=== PATIENT | male | born 1965 | race Caucasian/White ===

== ENCOUNTER 2024-03-04 17:11 | Inpatient (IN) | payer OTHER ==
[2024-03-04 17:43] LABS: #Basophils 0.03 10x3/uL (0.0-0.2); #Eosinophils Less than 0.03 10x3/uL (0.0-0.7); %Basophils 0.2 % (0.0-1.0); %Eosinophils 0.1 % (0.0-10.0); %Lymphocytes 2.8 % (21.0-51.0); %Monocytes 8.8 % (0.0-10.0); %Neutrophils 87.5 % (42.0-75.0); Hematocrit 36.7 % (42.0-52.0); Hemoglobin 12.6 g/dL (14.0-18.0); Mean Corpuscular HGB CONC 34.3 g/dL (32.0-36.0); Mean Corpuscular Hemoglobin 28.9 pg (27.0-31.0); Mean Corpuscular Volume 84.2 fL (78.0-98.0); Mean Platelet Volume 10.6 fL (7.4-10.4); Platelet Count 252 10x3/uL (130-400); RBC Distribution Width 11.7 % (11.5-14.5); Red Blood Cell (RBC) Count 4.36 mill/uL (4.70-6.10)
[2024-03-04 17:58] LABS: INR-International Normal Ratio 1.1; Prothrombin Time 14.1 sec (12.0-14.7)
[2024-03-04 18:02] LABS: D-Dimer Test 1.45 mcg/mL (0.27-0.43)
[2024-03-04] MEDS ORDERED: HYDROmorphone 0.5 MG/0.5 ML SYRINGE ONE (18:04)
[2024-03-04] MEDS ORDERED: Boostrix 0.5 ML (Tdap) VIAL (>/=7 yrs of age) ONE (18:04)
[2024-03-04 18:18] LABS: ALT (SGPT) 20 U/L (8-55); AST (SGOT) 23 U/L (5-34); Albumin 2.8 g/dL (3.5-5.0); Alkaline Phosphatase 139 U/L (40-110); Anion Gap 14 mmol/L (10-20); BUN (Urea Nitrogen) 18 mg/dL (8.4-25.7); Bilirubin, Total 0.6 mg/dL (0.2-1.2); CK (CPK) 735 U/L (30-200); Calc. Creatinine Clearance 0 mL/min (70-130); Calcium 9.4 mg/dL (7.8-10.44); Carbon Dioxide 24 mmol/L (22-29); Chloride 90 mmol/L (98-107); Estimated GFR 87; Globulin 3.6 g/dL (2.4-3.5); Glucose 550 mg/dL (70-105); Potassium 4.1 mmol/L (3.5-5.1); Protein, Total 6.4 g/dL (6.0-8.3); Sodium 124 mmol/L (136-145)
[2024-03-04] MEDS ORDERED: Lidocaine 2% PF 5 ML VIAL ONE (19:31)
[2024-03-04] MEDS ORDERED: Morphine 4 MG/ML VIAL SLOW IVP PRN (20:14)
[2024-03-04] MEDS ORDERED: Glucagon 1 MG/ML KIT IM PRN (20:15)
[2024-03-04] MEDS ORDERED: Dextrose 5% in Water 1,000 ML IV PRN (20:15)
[2024-03-04] MEDS ORDERED: Dextrose 50% Abboject 50 ML SYRINGE SLOW IVP PRN (20:15)
[2024-03-04] MEDS ORDERED: Labetalol HCl 100 MG/20 ML VIAL SLOW IVP PRN (20:46)
[2024-03-04] MEDS: Insulin Lispro 100 UNIT/ML 10 ML VIAL SC PRN (22:21)
[2024-03-04] MEDS: Sodium Chloride 0.9% 1,000 ML IV SCH (22:23)
[2024-03-04] MEDS: Vancomycin (BATCH) 2 GM in Premix 1 BAG IVPB SCH (22:23)
[2024-03-04] MEDS: Nicotine 14 MG PATCH TD SCH (22:25)
[2024-03-04] MEDS: Acetaminophen 325 MG TAB PO PRN (22:40)
[2024-03-04] MEDS: Clindamycin/D5W 900 MG in Premix 1 BAG IVPB SCH (22:41)
[2024-03-05 00:43] VITALS: BMI 19.5
[2024-03-05 00:45] LABS: INR-International Normal Ratio 1.1; Prothrombin Time 14.5 sec (12.0-14.7)
[2024-03-05 00:46] LABS: PTT 39.1 sec (22.9-36.1)
[2024-03-05] MEDS: traMADol HCl 50 MG TAB PO PRN (04:16)
[2024-03-05] MEDS: Ondansetron PF 4 MG/2 ML Vial IVP PRN (04:49)
[2024-03-05 05:55] LABS: #Basophils 0.05 10x3/uL (0.0-0.2); #Eosinophils Less than 0.03 10x3/uL (0.0-0.7); %Basophils 0.2 % (0.0-1.0); %Eosinophils 0.1 % (0.0-10.0); %Lymphocytes 2.1 % (21.0-51.0); %Monocytes 8.3 % (0.0-10.0); %Neutrophils 88.8 % (42.0-75.0); Hematocrit 34.3 % (42.0-52.0); Hemoglobin 11.9 g/dL (14.0-18.0); Mean Corpuscular HGB CONC 34.7 g/dL (32.0-36.0); Mean Corpuscular Volume 83.7 fL (78.0-98.0); Mean Platelet Volume 10.9 fL (7.4-10.4); Platelet Count 233 10x3/uL (130-400); RBC Distribution Width 11.9 % (11.5-14.5)
[2024-03-05 05:59] LABS: ALT (SGPT) 35 U/L (8-55); AST (SGOT) 48 U/L (5-34); Albumin 2.3 g/dL (3.5-5.0); Alkaline Phosphatase 206 U/L (40-110); Anion Gap 15 mmol/L (10-20); BUN (Urea Nitrogen) 12 mg/dL (8.4-25.7); Bilirubin, Total 0.6 mg/dL (0.2-1.2); Calc. Creatinine Clearance 120 mL/min (70-130); Carbon Dioxide 22 mmol/L (22-29); Chloride 97 mmol/L (98-107); Estimated GFR 111; Globulin 3.3 g/dL (2.4-3.5); Glucose 191 mg/dL (70-105); Potassium 3.9 mmol/L (3.5-5.1); Protein, Total 5.6 g/dL (6.0-8.3); Sodium 130 mmol/L (136-145)
[2024-03-05 06:00] LABS: Hemoglobin A1c 12.7 % (4.0-6.0)
[2024-03-05] MEDS: Cefepime 2 GM in Sodium Chloride 0.9% 100 ML IVPB SCH (06:22)
[2024-03-05] MEDS ORDERED: Ondansetron PF 4 MG/2 ML Vial ONE (09:00)
[2024-03-05] MEDS ORDERED: Lidocaine 1% PF 5 ML VIAL ONE (09:00)
[2024-03-05] MEDS ORDERED: PROPOFOL 20 ML ONE ×2 (09:00→10:29)
[2024-03-05] MEDS ORDERED: fentaNYL 50 mcg/mL 1 mL Vial ONE (09:00)
[2024-03-05] MEDS ORDERED: Midazolam HCl 2 mg/2 ml Vial ONE (09:00)
[2024-03-05] MEDS: Lisinopril 20 MG TAB PO SCH (09:56)
[2024-03-05] MEDS: Vancomycin HCl 750 MG in Sodium Chloride 0.9% 250 ML 250 ML IVPB SCH (09:56)
[2024-03-05] MEDS ORDERED: Iopamidol-370 76% 500 ML MDV (1 ML CHARGE) ONE (10:18)
[2024-03-05] MEDS ORDERED: fentaNYL PF 100 MCG/2 ML SYRINGE ONE ×2 (11:20→12:29)
[2024-03-05] MEDS ORDERED: PHENYLEPHRINE-NS 100 MCG/ML 10 ML SYRINGE ONE ×3 (11:31→13:11)
[2024-03-05] MEDS ORDERED: Heparin 5,000 UNITS/ML VIAL ONE (11:36)
[2024-03-05] MEDS ORDERED: Albumin 5% 500 ML ONE (11:37)
[2024-03-05] MEDS ORDERED: Ketamine In 0.9 % NaCl 50 MG/5 ML SYRINGE ONE (12:23)
[2024-03-05] MEDS ORDERED: Dexamethasone 20 MG/5 ML VIAL ONE (13:25)
[2024-03-05] MEDS ORDERED: Heparin 25,000 units/D5W 500 ML IVPB SCH (14:30)
[2024-03-05] MEDS ORDERED: Heparin 10,000 UNITS/ 10 ML VIAL SLOW IVP SCH (14:30)
[2024-03-05] MEDS: Vancomycin 1 GM in Premix 1 BAG IVPB SCH (15:32)
[2024-03-05 15:41] LABS: Hematocrit 32.7 % (42.0-52.0); Hemoglobin 10.6 g/dL (14.0-18.0); Platelet Count 206 10x3/uL (130-400)
[2024-03-05 17:14] LABS: Hemoglobin 9.2 g/dL (14.0-18.0); Mean Corpuscular HGB CONC 32.9 g/dL (32.0-36.0); Mean Corpuscular Hemoglobin 29.6 pg (27.0-31.0); Platelet Count 184 10x3/uL (130-400); RBC Distribution Width 12.2 % (11.5-14.5); Red Blood Cell (RBC) Count 3.11 mill/uL (4.70-6.10)
[2024-03-05 17:43] LABS: Band 19 % (5-11); Burr Cells SLIGHT = 2-5 cells HPF (0-1); Monocytes 3 % (0-10); Myelocyte 2 % (0-0); Neutrophil 76 % (42-75); Platelet Adequacy Comment Platelets Normal; Polychromasia SLIGHT = 2-3 cells HPF (0-2)
[2024-03-05] MEDS: Morphine 2 MG/ML VIAL SLOW IVP PRN (17:44)
[2024-03-05 18:58] LABS: Lactic Acid 0.94 mmol/L (0.5-2.2)
[2024-03-05] MEDS: FLU (Fluarix Triv) TS24-25(6MOS UP)/PF 45 MCG/0.5 ML Syringe IM ONE (22:03)
[2024-03-06 03:52] LABS: Amphetamine Detected (NotDetected); Barbiturates Screen Not Detected (NotDetected); Benzodiazepine Screen Not Detected (NotDetected); Cocaine Metabolite Screen Not Detected (NotDetected); Methadone Not Detected (NotDetected); Methamphetamine Detected (NotDetected); Opiate Screen Detected (NotDetected); Oxycodone Screen Not Detected (NotDetected); Phencyclidine (PCP) Not Detected (NotDetected); THC/Cannabinoid Screen Detected (NotDetected); Tricyclic Screen Not Detected (NotDetected)
[2024-03-06 05:15] LABS: #Basophils 0.03 10x3/uL (0.0-0.2); %Basophils 0.2 % (0.0-1.0); %Eosinophils 0.2 % (0.0-10.0); %Lymphocytes 3.8 % (21.0-51.0); %Monocytes 8.3 % (0.0-10.0); %Neutrophils 86.6 % (42.0-75.0); Hematocrit 28.5 % (42.0-52.0); Hemoglobin 9.6 g/dL (14.0-18.0); Mean Corpuscular HGB CONC 33.7 g/dL (32.0-36.0); Mean Corpuscular Hemoglobin 28.7 pg (27.0-31.0); Mean Corpuscular Volume 85.3 fL (78.0-98.0); Mean Platelet Volume 10.8 fL (7.4-10.4); Platelet Count 233 10x3/uL (130-400); RBC Distribution Width 11.9 % (11.5-14.5); Red Blood Cell (RBC) Count 3.34 mill/uL (4.70-6.10)
[2024-03-06 05:36] LABS: Vancomycin, Random 11.4 ug/mL (See Comment)
[2024-03-06 05:39] LABS: ALT (SGPT) 43 U/L (8-55); AST (SGOT) 40 U/L (5-34); Albumin 1.9 g/dL (3.5-5.0); Alkaline Phosphatase 188 U/L (40-110); Anion Gap 10 mmol/L (10-20); BUN (Urea Nitrogen) 13 mg/dL (8.4-25.7); Bilirubin, Total 0.3 mg/dL (0.2-1.2); Calc. Creatinine Clearance 105 mL/min (70-130); Calcium 8.4 mg/dL (7.8-10.44); Carbon Dioxide 26 mmol/L (22-29); Chloride 101 mmol/L (98-107); Estimated GFR 107; Glucose 302 mg/dL (70-105); Potassium 4.2 mmol/L (3.5-5.1); Protein, Total 4.9 g/dL (6.0-8.3); Sodium 133 mmol/L (136-145)
[2024-03-06 11:56] VITALS: BMI 19.5
[2024-03-06] MEDS: Cefepime 2 GM in Sodium Chloride 0.9% 100 ML IVPB SCH (12:34)
[2024-03-06] MEDS: Clindamycin/D5W 900 MG in Premix 1 BAG IVPB SCH (12:38)
[2024-03-06] MEDS ORDERED: fentaNYL 50 mcg/mL 1 mL Vial ONE (16:58)
[2024-03-06] MEDS ORDERED: Rocuronium Bromide 10 MG/ML (10ML VIAL) ONE (17:07)
[2024-03-06] MEDS ORDERED: PROPOFOL 20 ML ONE (17:07)
[2024-03-06] MEDS ORDERED: fentaNYL PF 100 MCG/2 ML SYRINGE ONE (17:13)
[2024-03-06] MEDS ORDERED: Dexmedetomidine 200 MCG/2 ML VIAL ONE (17:46)
[2024-03-06] MEDS ORDERED: diphenhydrAMINE 50 MG/ML VIAL ONE (17:47)
[2024-03-06] MEDS ORDERED: Ondansetron PF 4 MG/2 ML Vial ONE (17:47)
[2024-03-06] MEDS ORDERED: Heparin 10,000 UNITS/ 10 ML VIAL ONE (18:33)
[2024-03-06] MEDS ORDERED: HYDROmorphone 2 MG/ML VIAL ONE (19:19)
[2024-03-06] MEDS ORDERED: SUGAMMADEX SODIUM 200 MG/2 ML VIAL ONE (19:19)
[2024-03-06] MEDS ORDERED: Ketorolac Tromethamine 30 MG (1 mL) VIAL ONE (19:24)
[2024-03-06] MEDS ORDERED: Promethazine HCl 25 MG/ML VIAL IM PRN ×2 (19:54→19:55)
[2024-03-06] MEDS ORDERED: Ondansetron HCl/PF 4 MG/2 ML Vial IVP PRN (19:54)
[2024-03-06] MEDS ORDERED: HYDROmorphone 2 MG/ML VIAL SLOW IVP PRN (19:54)
[2024-03-06] MEDS ORDERED: diphenhydrAMINE 50 MG/ML VIAL IM PRN (19:55)
[2024-03-06] MEDS ORDERED: Ondansetron PF 4 MG/2 ML Vial IVP PRN (19:55)
[2024-03-06] MEDS ORDERED: diphenhydrAMINE 25 MG CAP PO PRN (19:55)
[2024-03-06] MEDS ORDERED: Naloxone HCl 0.4 mg/ml Vial IV PRN (19:55)
[2024-03-06] MEDS ORDERED: diphenhydrAMINE 50 MG/ML VIAL IVP PRN (19:55)
[2024-03-06] MEDS ORDERED: Communication Order-Pharmacy FS SCH (20:00)
[2024-03-06] MEDS ORDERED: Heparin 1,000 UNITS/ML VIAL CATH SCH (20:30)
[2024-03-06] MEDS ORDERED: Cefepime 2 GM VIAL ONE (20:36)
[2024-03-06] MEDS ORDERED: Sodium Chloride 0.9% 100 ML ONE (20:37)
[2024-03-06] MEDS: Heparin 25,000 units/D5W 500 ML IV SCH (22:30)
[2024-03-07] MEDS ORDERED: Benzocaine/Menthol 1 LOZ LOZ PO PRN (01:19)
[2024-03-07] MEDS: Clindamycin/D5W 900 MG in Premix 1 BAG IVPB SCH ×2 (01:22→09:09)
[2024-03-07] MEDS: Insulin Lispro 100 UNIT/ML 10 ML VIAL SC PRN (06:47)
[2024-03-07 14:52] LABS: Hematocrit 24.8 % (42.0-52.0); Hemoglobin 8.1 g/dL (14.0-18.0); Platelet Count 226 10x3/uL (130-400)
[2024-03-08 06:23] LABS: #Basophils 0.03 10x3/uL (0.0-0.2); %Basophils 0.3 % (0.0-1.0); %Eosinophils 1.3 % (0.0-10.0); %Lymphocytes 12.2 % (21.0-51.0); %Monocytes 10.1 % (0.0-10.0); %Neutrophils 74.8 % (42.0-75.0); Hematocrit 23.8 % (42.0-52.0); Hemoglobin 7.9 g/dL (14.0-18.0); Mean Corpuscular HGB CONC 33.2 g/dL (32.0-36.0); Mean Corpuscular Hemoglobin 28.9 pg (27.0-31.0); Mean Corpuscular Volume 87.2 fL (78.0-98.0); Mean Platelet Volume 10.7 fL (7.4-10.4); Platelet Count 257 10x3/uL (130-400); RBC Distribution Width 12.3 % (11.5-14.5); Red Blood Cell (RBC) Count 2.73 mill/uL (4.70-6.10)
[2024-03-08 06:41] LABS: ALT (SGPT) 48 U/L (8-55); AST (SGOT) 30 U/L (5-34); Albumin 1.7 g/dL (3.5-5.0); Alkaline Phosphatase 293 U/L (40-110); Anion Gap 12 mmol/L (10-20); BUN (Urea Nitrogen) 9 mg/dL (8.4-25.7); Calc. Creatinine Clearance 124 mL/min (70-130); Carbon Dioxide 23 mmol/L (22-29); Chloride 98 mmol/L (98-107); Estimated GFR 112; Globulin 3.2 g/dL (2.4-3.5); Glucose 234 mg/dL (70-105); Potassium 4.1 mmol/L (3.5-5.1); Protein, Total 4.9 g/dL (6.0-8.3); Sodium 129 mmol/L (136-145)
[2024-03-08 06:57] LABS: Bilirubin, Total 0.2 mg/dL (0.2-1.2); Calcium 8.2 mg/dL (7.8-10.44)
[2024-03-08] MEDS ORDERED: PROPOFOL 0 ML ONE (15:31)
[2024-03-08] MEDS ORDERED: fentaNYL 50 mcg/mL 1 mL Vial ONE (15:32)
[2024-03-08] MEDS ORDERED: Rocuronium Bromide 10 MG/ML (10ML VIAL) ONE (15:32)
[2024-03-08] MEDS ORDERED: Lidocaine 1% PF 5 ML VIAL ONE (15:32)
[2024-03-08] MEDS ORDERED: Dexamethasone 20 MG/5 ML VIAL ONE (15:32)
[2024-03-08] MEDS ORDERED: Ondansetron PF 4 MG/2 ML Vial ONE (15:32)
[2024-03-08] MEDS: HYDROmorphone/PF 10 MG in Sodium Chloride 0.9% 99 ML IV PRN (19:25)
[2024-03-09 06:47] LABS: Vancomycin, Random 12.4 ug/mL (See Comment)
[2024-03-09] MEDS ORDERED: Melatonin 3 MG TAB PO PRN (09:04)
[2024-03-09] MEDS: Senokot S 8.6-50 MG TAB PO SCH ×2 (09:31→20:24)
[2024-03-09 12:37] LABS: Hemoglobin 7.5 g/dL (14.0-18.0)
[2024-03-09] MEDS ORDERED: Ondansetron PF 4 MG/2 ML Vial ONE ×2 (13:59→16:10)
[2024-03-09] MEDS ORDERED: Lidocaine 1% PF 5 ML VIAL ONE (13:59)
[2024-03-09] MEDS ORDERED: PROPOFOL 20 ML ONE (13:59)
[2024-03-09] MEDS ORDERED: fentaNYL PF 100 MCG/2 ML SYRINGE ONE ×2 (13:59→15:34)
[2024-03-09] MEDS ORDERED: Dexamethasone 20 MG/5 ML VIAL ONE (13:59)
[2024-03-09] MEDS ORDERED: Midazolam HCl 2 mg/2 ml Vial ONE (14:01)
[2024-03-09] MEDS ORDERED: Promethazine HCl 25 MG/ML VIAL IM PRN (16:29)
[2024-03-09] MEDS ORDERED: Morphine Sulfate 2 MG/ML SYRINGE SLOW IVP PRN (16:29)
[2024-03-09] MEDS ORDERED: Ondansetron HCl/PF 4 MG/2 ML Vial IVP PRN (16:29)
[2024-03-09] MEDS ORDERED: PACU-Morphine 4MG/ML VIAL SLOW IVP PRN (16:29)
[2024-03-09] MEDS ORDERED: HYDROmorphone 2 MG/ML VIAL SLOW IVP PRN (16:29)
[2024-03-09 23:42] LABS: Hematocrit 28.3 % (42.0-52.0); Hemoglobin 9.3 g/dL (14.0-18.0); Platelet Count 313 10x3/uL (130-400)
[2024-03-10] MEDS: Bisacodyl 5 MG TAB PO SCH (11:21)
[2024-03-10] MEDS: Penicillin G Potassium 4,000,000 UNITS in Syringe 0 ML IVPB SCH (14:59)
[2024-03-10] MEDS: Penicillin G Potassium 4 MILL.UNITS in Sodium Chloride 0.9% 50 ML IVPB SCH (20:13)
[2024-03-11 08:17] LABS: #Basophils 0.05 10x3/uL (0.0-0.2); %Basophils 0.6 % (0.0-1.0); %Eosinophils 1.6 % (0.0-10.0); %Lymphocytes 13.3 % (21.0-51.0); %Neutrophils 70.9 % (42.0-75.0); Hematocrit 27.6 % (42.0-52.0); Hemoglobin 8.9 g/dL (14.0-18.0); Mean Corpuscular HGB CONC 32.2 g/dL (32.0-36.0); Mean Corpuscular Hemoglobin 28.3 pg (27.0-31.0); Mean Corpuscular Volume 87.9 fL (78.0-98.0); Mean Platelet Volume 9.2 fL (7.4-10.4); Platelet Count 324 10x3/uL (130-400); RBC Distribution Width 13.2 % (11.5-14.5); Red Blood Cell (RBC) Count 3.14 mill/uL (4.70-6.10)
[2024-03-11 08:39] LABS: Anion Gap 11 mmol/L (10-20); BUN (Urea Nitrogen) 13 mg/dL (8.4-25.7); Calc. Creatinine Clearance 107 mL/min (70-130); Calcium 8.5 mg/dL (7.8-10.44); Carbon Dioxide 27 mmol/L (22-29); Chloride 98 mmol/L (98-107); Estimated GFR 107; Glucose 262 mg/dL (70-105); Potassium 4.1 mmol/L (3.5-5.1); Sodium 132 mmol/L (136-145)
[2024-03-11 08:40] LABS: CRP,High Sensitivity (Inhouse) 2.27 mg/dL (< or = 0.5)
[2024-03-11 17:38] LABS: Hemoglobin 8.8 g/dL (14.0-18.0); Platelet Count 330 10x3/uL (130-400)
[2024-03-12] MEDS ORDERED: Bacitracin Zinc Ointment 30 gm TUBE ONE (10:20)
[2024-03-12] MEDS ORDERED: Bupivacaine PF 0.5% 30 ML VIAL ONE (10:20)
[2024-03-12] MEDS ORDERED: PROPOFOL 20 ML ONE (10:31)
[2024-03-12] MEDS ORDERED: fentaNYL 50 mcg/mL 1 mL Vial ONE ×2 (10:31→14:34)
[2024-03-12] MEDS ORDERED: Lidocaine 1% PF 5 ML VIAL ONE (10:31)
[2024-03-12] MEDS ORDERED: Rocuronium Bromide 10 MG/ML (10ML VIAL) ONE (11:41)
[2024-03-12] MEDS ORDERED: ePHEDrine Sulfate 50 MG/10 ML VIAL ONE (12:13)
[2024-03-12] MEDS ORDERED: Mineral Oil Sterile 10 ML VIAL ONE (12:56)
[2024-03-12] MEDS ORDERED: PHENYLEPHRINE-NS 100 MCG/ML 10 ML SYRINGE ONE (13:18)
[2024-03-12] MEDS ORDERED: Phenylephrine 40 MG/NS 250 ML 250 ML ONE ×2 (13:18)
[2024-03-12] MEDS ORDERED: Heparin 10,000 UNITS/ 10 ML VIAL ONE ×2 (13:19→13:45)
[2024-03-12] MEDS ORDERED: SUGAMMADEX SODIUM 200 MG/2 ML VIAL ONE (13:45)
[2024-03-12] MEDS ORDERED: Ondansetron PF 4 MG/2 ML Vial ONE (13:48)
[2024-03-12] MEDS ORDERED: Promethazine HCl 25 MG/ML VIAL IM PRN (14:16)
[2024-03-12] MEDS ORDERED: Ondansetron HCl/PF 4 MG/2 ML Vial IVP PRN (14:16)
[2024-03-12] MEDS: Heparin 25,000 units/D5W 500 ML IV SCH (17:48)
[2024-03-12] MEDS: fentaNYL 50 mcg/mL 1 mL Vial SLOW IVP PRN (19:57)
[2024-03-12] MEDS: HYDROcodone/Acetaminophen 5/325 mg Tablet PO PRN (19:57)
[2024-03-13] MEDS: HYDROcodone/Acetaminophen 5/325 mg Tablet PO PRN (05:24)
[2024-03-13] MEDS: Insulin Glargine 30 UNITS/0.3 ML VIAL SC SCH (09:15)
[2024-03-13 15:38] LABS: Hematocrit 26.4 % (42.0-52.0); Hemoglobin 8.5 g/dL (14.0-18.0); Platelet Count 424 10x3/uL (130-400)
[2024-03-14 05:57] LABS: #Basophils 0.05 10x3/uL (0.0-0.2); %Basophils 0.7 % (0.0-1.0); %Eosinophils 2.2 % (0.0-10.0); %Lymphocytes 16.3 % (21.0-51.0); %Monocytes 9.5 % (0.0-10.0); %Neutrophils 68.7 % (42.0-75.0); Hematocrit 26.8 % (42.0-52.0); Hemoglobin 8.5 g/dL (14.0-18.0); Mean Corpuscular HGB CONC 31.7 g/dL (32.0-36.0); Mean Corpuscular Hemoglobin 28.3 pg (27.0-31.0); Mean Corpuscular Volume 89.3 fL (78.0-98.0); Mean Platelet Volume 9.8 fL (7.4-10.4); Platelet Count 426 10x3/uL (130-400); RBC Distribution Width 13.2 % (11.5-14.5)
[2024-03-14 06:13] LABS: ALT (SGPT) 26 U/L (8-55); AST (SGOT) 14 U/L (5-34); Albumin 2.1 g/dL (3.5-5.0); Alkaline Phosphatase 213 U/L (40-110); Anion Gap 12 mmol/L (10-20); BUN (Urea Nitrogen) 14 mg/dL (8.4-25.7); Bilirubin, Total 0.2 mg/dL (0.2-1.2); Calc. Creatinine Clearance 99 mL/min (70-130); Carbon Dioxide 25 mmol/L (22-29); Chloride 98 mmol/L (98-107); Estimated GFR 105; Globulin 3.4 g/dL (2.4-3.5); Glucose 439 mg/dL (70-105); Protein, Total 5.5 g/dL (6.0-8.3); Sodium 131 mmol/L (136-145)
[2024-03-14] MEDS: Insulin Glargine 30 UNITS/0.3 ML VIAL SC SCH (22:30)
[2024-03-15 05:57] LABS: #Basophils 0.07 10x3/uL (0.0-0.2); %Basophils 0.7 % (0.0-1.0); %Eosinophils 2.1 % (0.0-10.0); %Lymphocytes 16.6 % (21.0-51.0); %Monocytes 7.7 % (0.0-10.0); %Neutrophils 70.5 % (42.0-75.0); Hematocrit 30.2 % (42.0-52.0); Hemoglobin 9.5 g/dL (14.0-18.0); Mean Corpuscular HGB CONC 31.5 g/dL (32.0-36.0); Mean Corpuscular Hemoglobin 27.5 pg (27.0-31.0); Mean Corpuscular Volume 87.5 fL (78.0-98.0); Mean Platelet Volume 9.8 fL (7.4-10.4); Platelet Count 506 10x3/uL (130-400); RBC Distribution Width 13.3 % (11.5-14.5); Red Blood Cell (RBC) Count 3.45 mill/uL (4.70-6.10)
[2024-03-15 06:15] LABS: Anion Gap 12 mmol/L (10-20); BUN (Urea Nitrogen) 16 mg/dL (8.4-25.7); Calc. Creatinine Clearance 97 mL/min (70-130); Calcium 8.9 mg/dL (7.8-10.44); Carbon Dioxide 28 mmol/L (22-29); Chloride 98 mmol/L (98-107); Estimated GFR 104; Glucose 297 mg/dL (70-105); Potassium 4.4 mmol/L (3.5-5.1); Sodium 134 mmol/L (136-145)
[2024-03-15] MEDS: Insulin Glargine 30 UNITS/0.3 ML VIAL SC SCH (08:56)
[2024-03-15 14:27] LABS: Hematocrit 27.9 % (42.0-52.0); Hemoglobin 9.2 g/dL (14.0-18.0); Platelet Count 447 10x3/uL (130-400)
[2024-03-16 05:04] LABS: #Basophils 0.07 10x3/uL (0.0-0.2); %Basophils 0.8 % (0.0-1.0); %Eosinophils 2.2 % (0.0-10.0); %Lymphocytes 16.4 % (21.0-51.0); %Neutrophils 69.9 % (42.0-75.0); Mean Corpuscular HGB CONC 30.8 g/dL (32.0-36.0); Mean Corpuscular Hemoglobin 27.9 pg (27.0-31.0); Mean Corpuscular Volume 90.6 fL (78.0-98.0); Mean Platelet Volume 9.8 fL (7.4-10.4); Platelet Count 421 10x3/uL (130-400); RBC Distribution Width 13.3 % (11.5-14.5); Red Blood Cell (RBC) Count 2.87 mill/uL (4.70-6.10)
[2024-03-16 05:49] LABS: Anion Gap 14 mmol/L (10-20); BUN (Urea Nitrogen) 12 mg/dL (8.4-25.7); Calc. Creatinine Clearance 102 mL/min (70-130); Calcium 8.2 mg/dL (7.8-10.44); Carbon Dioxide 22 mmol/L (22-29); Chloride 101 mmol/L (98-107); Estimated GFR 106; Glucose 359 mg/dL (70-105); Potassium 3.9 mmol/L (3.5-5.1); Sodium 133 mmol/L (136-145)
[2024-03-16] MEDS: Insulin Glargine 30 UNITS/0.3 ML VIAL SC SCH ×2 (09:03→09:08)
[2024-03-17 05:48] LABS: #Basophils 0.06 10x3/uL (0.0-0.2); %Basophils 0.7 % (0.0-1.0); %Eosinophils 2.1 % (0.0-10.0); %Lymphocytes 15.4 % (21.0-51.0); %Monocytes 7.9 % (0.0-10.0); Hemoglobin 8.4 g/dL (14.0-18.0); Mean Corpuscular HGB CONC 31.1 g/dL (32.0-36.0); Mean Corpuscular Hemoglobin 27.8 pg (27.0-31.0); Mean Corpuscular Volume 89.4 fL (78.0-98.0); Mean Platelet Volume 9.9 fL (7.4-10.4); Platelet Count 432 10x3/uL (130-400); RBC Distribution Width 13.8 % (11.5-14.5); Red Blood Cell (RBC) Count 3.02 mill/uL (4.70-6.10)
[2024-03-17 06:24] LABS: ALT (SGPT) 25 U/L (8-55); AST (SGOT) 21 U/L (5-34); Albumin 2.3 g/dL (3.5-5.0); Alkaline Phosphatase 158 U/L (40-110); Anion Gap 12 mmol/L (10-20); BUN (Urea Nitrogen) 13 mg/dL (8.4-25.7); Bilirubin, Total 0.2 mg/dL (0.2-1.2); Calc. Creatinine Clearance 107 mL/min (70-130); Calcium 8.5 mg/dL (7.8-10.44); Carbon Dioxide 25 mmol/L (22-29); Chloride 102 mmol/L (98-107); Estimated GFR 107; Globulin 3.1 g/dL (2.4-3.5); Glucose 282 mg/dL (70-105); Magnesium 1.7 mg/dL (1.6-2.6); Potassium 4.1 mmol/L (3.5-5.1); Protein, Total 5.4 g/dL (6.0-8.3); Sodium 135 mmol/L (136-145)
[2024-03-17 11:51] VITALS: BP 156/81; TEMP 97.5
== END 2024-03-17 14:35 | disposition home or self-care (01) | DRG 511 ==
LOC: ERS 17:11 → SURG A 19:28 → OBSVTOIN 03-05 06:20
PROVIDERS: ADMIT Internal Medicine; ATTEND Internal Medicine
PROC: 30233J1 Transfusion of Nonautologous Serum Albumin into Peripheral Vein, Percutaneous Approach (ICD-10-PCS; 2024-03-05)
PROC: 0J8 Subcutaneous Tissue and Fascia, Division (ICD-10-PCS; 2024-03-05)
PROC: 0KBC0ZZ Excision of Right Hand Muscle, Open Approach (ICD-10-PCS; 2024-03-06)
PROC: 30233N1 Transfusion of Nonautologous Red Blood Cells into Peripheral Vein, Percutaneous Approach (ICD-10-PCS; principal; 2024-03-09)
PROC: 0PBH0ZZ Excision of Right Radius, Open Approach (ICD-10-PCS; 2024-03-09)
PROC: 3E033XZ Introduction of Vasopressor into Peripheral Vein, Percutaneous Approach (ICD-10-PCS; 2024-03-12)
PROC: 0HRFXK3 Replacement of Right Hand Skin with Nonautologous Tissue Substitute, Full Thickness, External Approach (ICD-10-PCS; 2024-03-12)
PROC: 0KBC0ZZ Excision of Right Hand Muscle, Open Approach (ICD-10-PCS; 2024-03-12)
DX: M60.001 Infective myositis, unspecified left arm (principal); E87.1 Hypo-osmolality and hyponatremia; I74.2 Embolism and thrombosis of arteries of the upper extremities; M72.6 Necrotizing fasciitis; M62.82 Rhabdomyolysis; I10 Essential (primary) hypertension; F31.9 Bipolar disorder, unspecified; F17.210 Nicotine dependence, cigarettes, uncomplicated; E11.65 Type 2 diabetes mellitus with hyperglycemia
CPT/HCPCS: 36415; 36416; 36430; 80048; 80053; 80202; 80306; 82550; 82565; 83036; 83605; 83735; 85014; 85018; 85025; 85049; 85379; 85384; 85610; 85730; 86141; 86850; 86900; 86901; 87040; 87070; 87077; 87205; 88305; 90471; 90715; 93005; 96361; 96365; 96366; 96367; 96375; 97139; A6258; A6550; C1713; G0378; J0665; J0692; J1100; J1170; J1200; J1644; J1815; J1885; J2250; J2272; J2405; J2540; J2704; J3010; J3370; J3370-JW; J3490; J7030; P9016; P9045; Q9967

== ENCOUNTER 2024-03-21 07:09 | Inpatient (IN) | payer OTHER ==
[2024-03-21 07:36] LABS: #Basophils 0.07 10x3/uL (0.0-0.2); %Basophils 1.2 % (0.0-1.0); %Eosinophils 1.8 % (0.0-10.0); %Lymphocytes 19.3 % (21.0-51.0); %Monocytes 10.8 % (0.0-10.0); %Neutrophils 66.5 % (42.0-75.0); Hematocrit 29.3 % (42.0-52.0); Hemoglobin 9.4 g/dL (14.0-18.0); Mean Corpuscular HGB CONC 32.1 g/dL (32.0-36.0); Mean Corpuscular Hemoglobin 27.7 pg (27.0-31.0); Mean Corpuscular Volume 86.4 fL (78.0-98.0); Mean Platelet Volume 9.5 fL (7.4-10.4); Platelet Count 342 10x3/uL (130-400); RBC Distribution Width 13.8 % (11.5-14.5); Red Blood Cell (RBC) Count 3.39 mill/uL (4.70-6.10)
[2024-03-21] MEDS ORDERED: Morphine 4 MG/ML VIAL ONE ×2 (07:55→09:11)
[2024-03-21 07:57] LABS: Glucose 497 mg/dL (70-105)
[2024-03-21 07:58] LABS: ALT (SGPT) 27 U/L (8-55); AST (SGOT) 15 U/L (5-34); Albumin 2.7 g/dL (3.5-5.0); Alkaline Phosphatase 181 U/L (40-110); Anion Gap 13 mmol/L (10-20); BUN (Urea Nitrogen) 18 mg/dL (8.4-25.7); Bilirubin, Total 0.2 mg/dL (0.2-1.2); Calc. Creatinine Clearance 0 mL/min (70-130); Calcium 8.7 mg/dL (7.8-10.44); Carbon Dioxide 24 mmol/L (22-29); Chloride 101 mmol/L (98-107); Estimated GFR 104; Globulin 3.1 g/dL (2.4-3.5); Potassium 4.4 mmol/L (3.5-5.1); Protein, Total 5.8 g/dL (6.0-8.3); Sodium 134 mmol/L (136-145)
[2024-03-21 08:33] LABS: PTT 30.6 sec (22.9-36.1); Prothrombin Time 12.6 sec (12.0-14.7)
[2024-03-21] MEDS ORDERED: Iopamidol-370 76% 500 ML MDV (1 ML CHARGE) ONE (10:20)
[2024-03-21 11:39] LABS: Amphetamine Detected (NotDetected); Bacteria/HPF None Seen HPF (None Seen); Barbiturates Screen Not Detected (NotDetected); Benzodiazepine Screen Not Detected (NotDetected); Bilirubin Negative (Negative); Blood, Urine Negative (Negative); CAUTI Indications for Culture Dysuria,urgency,freq; Clarity Clear (Clear); Cocaine Metabolite Screen Not Detected (NotDetected); Glucose, Urine (Dipstick) Greater than 1000 mg/dL (Negative); Ketone, Urine Negative (Negative); Leukocyte Negative Leu/uL (Negative); Methadone Not Detected (NotDetected); Methamphetamine Detected (NotDetected); Nitrite Negative (Negative); Opiate Screen Detected (NotDetected); Oxycodone Screen Not Detected (NotDetected); Phencyclidine (PCP) Not Detected (NotDetected); Protein, Urine (Dipstick) Negative (Neg-Trace); RBC/HPF 0-3 HPF (0-3); Specific Gravity, Urine 1.025 (1.002-1.036); Squamous Epithelial 0-3 HPF (0-3); THC/Cannabinoid Screen Detected (NotDetected); Tricyclic Screen Not Detected (NotDetected); Urobilinogen Normal mg/dL (Less than 2); WBC/HPF 0-3 HPF (0-3); pH, Urine 6.5 (5.0-9.0)
[2024-03-21 11:44] LABS: Urine Culture Reflex No No
[2024-03-21] MEDS ORDERED: Heparin 5,000 UNITS/ML VIAL ONE (11:50)
[2024-03-21] MEDS ORDERED: Heparin 25,000 units/D5W 0 ML ONE (11:50)
[2024-03-21] MEDS ORDERED: Heparin 25,000 units/D5W 500 ML ONE (11:53)
[2024-03-21] MEDS ORDERED: HYDROmorphone 0.5 MG/0.5 ML SYRINGE ONE (12:04)
[2024-03-21] MEDS ORDERED: Ondansetron ODT 4 MG TAB PO PRN (12:16)
[2024-03-21] MEDS ORDERED: Morphine 4 MG/ML VIAL SLOW IVP PRN (12:16)
[2024-03-21] MEDS ORDERED: Ondansetron PF 4 MG/2 ML Vial IVP PRN ×2 (12:16→12:31)
[2024-03-21] MEDS ORDERED: Glucagon 1 MG/ML KIT IM PRN (12:31)
[2024-03-21] MEDS ORDERED: Dextrose 50% Abboject 50 ML SYRINGE SLOW IVP PRN (12:31)
[2024-03-21] MEDS ORDERED: Dextrose 5% in Water 1,000 ML IV PRN (12:31)
[2024-03-21 13:05] LABS: Hematocrit 27.4 % (42.0-52.0); Hemoglobin 8.6 g/dL (14.0-18.0); Platelet Count 301 10x3/uL (130-400)
[2024-03-21 13:46] LABS: PTT 192.9 sec (22.9-36.1)
[2024-03-21] MEDS: Penicillin V Potassium 250 MG TAB PO SCH (14:25)
[2024-03-21] MEDS: Clindamycin/D5W 900 MG in Premix 1 BAG IVPB SCH (15:36)
[2024-03-21] MEDS: Famotidine/PF 20 mg/2ml Vial SLOW IVP SCH (21:48)
[2024-03-21] MEDS: Heparin 10,000 UNITS/ 10 ML VIAL SLOW IVP SCH (23:51)
[2024-03-22] MEDS: Insulin Regular, Human 100 UNIT/ML 10 ML VIAL SC PRN (00:02)
[2024-03-22] MEDS: Morphine 4 MG/ML VIAL SLOW IVP PRN (00:05)
[2024-03-22] MEDS: [UNRECOGNIZED DRUG - OTHER] IVPB SCH (01:37)
[2024-03-22] MEDS: PENICILLIN POTASSIUM IVPB SCH (01:37)
[2024-03-22] MEDS: ADMIXTURE FEE IVPB SCH (01:37)
[2024-03-22] MEDS: Heparin 25,000 units/D5W 500 ML IVPB SCH (05:09)
[2024-03-22] MEDS: Clindamycin 150 MG CAP PO SCH (05:13)
[2024-03-22 05:32] LABS: #Basophils 0.05 10x3/uL (0.0-0.2); %Basophils 1.1 % (0.0-1.0); %Eosinophils 2.1 % (0.0-10.0); %Lymphocytes 19.8 % (21.0-51.0); %Monocytes 9.3 % (0.0-10.0); Hematocrit 26.7 % (42.0-52.0); Hemoglobin 8.5 g/dL (14.0-18.0); Mean Corpuscular HGB CONC 31.8 g/dL (32.0-36.0); Mean Corpuscular Hemoglobin 28.1 pg (27.0-31.0); Mean Corpuscular Volume 88.1 fL (78.0-98.0); Mean Platelet Volume 9.3 fL (7.4-10.4); Platelet Count 244 10x3/uL (130-400); RBC Distribution Width 13.9 % (11.5-14.5); Red Blood Cell (RBC) Count 3.03 mill/uL (4.70-6.10)
[2024-03-22 05:46] VITALS: BMI 21.5
[2024-03-22] MEDS ORDERED: Clindamycin 150 MG CAP PO SCH (06:00)
[2024-03-22 07:05] LABS: Anion Gap 15 mmol/L (10-20); BUN (Urea Nitrogen) 13 mg/dL (8.4-25.7); Calc. Creatinine Clearance 119 mL/min (70-130); Calcium 8.5 mg/dL (7.8-10.44); Carbon Dioxide 22 mmol/L (22-29); Chloride 104 mmol/L (98-107); Estimated GFR 107; Glucose 233 mg/dL (70-105); Potassium 4.6 mmol/L (3.5-5.1); Sodium 136 mmol/L (136-145)
[2024-03-22] MEDS: HYDROcodone/Acetaminophen 7.5/325 mg Tablet PO PRN (14:58)
[2024-03-22] MEDS: Insulin Glargine 30 UNITS/0.3 ML VIAL SC SCH (21:15)
[2024-03-23 04:52] LABS: #Basophils 0.04 10x3/uL (0.0-0.2); %Basophils 0.9 % (0.0-1.0); %Eosinophils 2.2 % (0.0-10.0); %Lymphocytes 23.9 % (21.0-51.0); %Neutrophils 62.6 % (42.0-75.0); Hemoglobin 8.8 g/dL (14.0-18.0); Mean Corpuscular HGB CONC 31.4 g/dL (32.0-36.0); Mean Corpuscular Hemoglobin 27.2 pg (27.0-31.0); Mean Corpuscular Volume 86.7 fL (78.0-98.0); Mean Platelet Volume 9.9 fL (7.4-10.4); Platelet Count 298 10x3/uL (130-400); RBC Distribution Width 13.7 % (11.5-14.5); Red Blood Cell (RBC) Count 3.23 mill/uL (4.70-6.10)
[2024-03-23 05:22] LABS: Anion Gap 12 mmol/L (10-20); BUN (Urea Nitrogen) 11 mg/dL (8.4-25.7); Calc. Creatinine Clearance 119 mL/min (70-130); Calcium 8.2 mg/dL (7.8-10.44); Carbon Dioxide 26 mmol/L (22-29); Chloride 100 mmol/L (98-107); Estimated GFR 107; Glucose 420 mg/dL (70-105); Potassium 4.3 mmol/L (3.5-5.1); Sodium 134 mmol/L (136-145)
[2024-03-23] MEDS: Insulin Glargine 30 UNITS/0.3 ML VIAL SC SCH ×2 (08:16→20:20)
[2024-03-23] MEDS: Lisinopril 20 MG TAB PO SCH (08:17)
[2024-03-23] MEDS: Insulin Regular, Human 100 UNIT/ML 10 ML VIAL SC PRN (11:26)
[2024-03-23] MEDS: Heparin 25,000 units/D5W 500 ML IVPB SCH (14:06)
[2024-03-24 01:08] LABS: PTT Greater than 200.0 sec (22.9-36.1)
[2024-03-25 04:50] LABS: #Basophils 0.05 10x3/uL (0.0-0.2); %Basophils 1.1 % (0.0-1.0); %Lymphocytes 24.4 % (21.0-51.0); %Monocytes 11.1 % (0.0-10.0); %Neutrophils 59.8 % (42.0-75.0); Hemoglobin 9.1 g/dL (14.0-18.0); Mean Corpuscular HGB CONC 31.4 g/dL (32.0-36.0); Mean Corpuscular Hemoglobin 27.7 pg (27.0-31.0); Mean Corpuscular Volume 88.4 fL (78.0-98.0); Mean Platelet Volume 10.1 fL (7.4-10.4); Platelet Count 254 10x3/uL (130-400); Red Blood Cell (RBC) Count 3.28 mill/uL (4.70-6.10)
[2024-03-25 05:06] LABS: Anion Gap 12 mmol/L (10-20); BUN (Urea Nitrogen) 11 mg/dL (8.4-25.7); Calc. Creatinine Clearance 106 mL/min (70-130); Calcium 8.7 mg/dL (7.8-10.44); Carbon Dioxide 25 mmol/L (22-29); Chloride 102 mmol/L (98-107); Estimated GFR 104; Glucose 268 mg/dL (70-105); Potassium 3.9 mmol/L (3.5-5.1); Sodium 135 mmol/L (136-145)
[2024-03-25] MEDS: Pregabalin 50 MG CAP PO SCH (08:54)
[2024-03-25] MEDS ORDERED: Pregabalin 75 MG CAP PO SCH (09:00)
[2024-03-25] MEDS: Rivaroxaban 10 MG TAB PO SCH (11:17)
[2024-03-25] MEDS: Rivaroxaban 15 MG TAB PO SCH (20:25)
[2024-03-26 06:27] LABS: #Basophils 0.07 10x3/uL (0.0-0.2); %Basophils 1.6 % (0.0-1.0); %Lymphocytes 17.4 % (21.0-51.0); %Monocytes 12.6 % (0.0-10.0); %Neutrophils 64.7 % (42.0-75.0); Hematocrit 31.3 % (42.0-52.0); Hemoglobin 9.5 g/dL (14.0-18.0); Mean Corpuscular HGB CONC 30.4 g/dL (32.0-36.0); Mean Corpuscular Hemoglobin 27.5 pg (27.0-31.0); Mean Corpuscular Volume 90.5 fL (78.0-98.0); Mean Platelet Volume 10.1 fL (7.4-10.4); Platelet Count 282 10x3/uL (130-400); RBC Distribution Width 14.3 % (11.5-14.5); Red Blood Cell (RBC) Count 3.46 mill/uL (4.70-6.10)
[2024-03-26 06:41] LABS: Anion Gap 17 mmol/L (10-20); BUN (Urea Nitrogen) 12 mg/dL (8.4-25.7); Calc. Creatinine Clearance 100 mL/min (70-130); Calcium 9.3 mg/dL (7.8-10.44); Carbon Dioxide 25 mmol/L (22-29); Chloride 99 mmol/L (98-107); Estimated GFR 102; Glucose 296 mg/dL (70-105); Potassium 4.3 mmol/L (3.5-5.1); Sodium 137 mmol/L (136-145)
[2024-03-26] MEDS ORDERED: Lidocaine 1% PF 5 ML VIAL ONE (08:02)
[2024-03-26] MEDS ORDERED: Sodium Bicarbonate 2.5 MEQ/5 ML SDV ONE (08:02)
[2024-03-26] MEDS: Rivaroxaban 15 MG TAB PO SCH (08:30)
[2024-03-27 06:11] LABS: #Basophils 0.05 10x3/uL (0.0-0.2); %Basophils 0.9 % (0.0-1.0); %Eosinophils 4.5 % (0.0-10.0); %Lymphocytes 18.6 % (21.0-51.0); %Monocytes 15.3 % (0.0-10.0); Hematocrit 28.9 % (42.0-52.0); Hemoglobin 8.9 g/dL (14.0-18.0); Mean Corpuscular HGB CONC 30.8 g/dL (32.0-36.0); Mean Corpuscular Hemoglobin 27.6 pg (27.0-31.0); Mean Corpuscular Volume 89.8 fL (78.0-98.0); Mean Platelet Volume 10.1 fL (7.4-10.4); Platelet Count 248 10x3/uL (130-400); RBC Distribution Width 13.8 % (11.5-14.5); Red Blood Cell (RBC) Count 3.22 mill/uL (4.70-6.10)
[2024-03-27 06:18] LABS: Anion Gap 11 mmol/L (10-20); BUN (Urea Nitrogen) 13 mg/dL (8.4-25.7); Calc. Creatinine Clearance 106 mL/min (70-130); Calcium 8.4 mg/dL (7.8-10.44); Carbon Dioxide 26 mmol/L (22-29); Chloride 98 mmol/L (98-107); Estimated GFR 104; Glucose 358 mg/dL (70-105); Magnesium 1.6 mg/dL (1.6-2.6); Potassium 4.1 mmol/L (3.5-5.1); Sodium 131 mmol/L (136-145)
[2024-03-27] MEDS: Rivaroxaban 15 MG TAB PO SCH (10:24)
[2024-03-27] MEDS: Magnesium 2 GM/50 ML(in water) 2 GM in Premix 1 BAG IVPB SCH (10:59)
[2024-03-27] MEDS: Insulin Glargine 30 UNITS/0.3 ML VIAL SC SCH ×2 (10:59→20:30)
[2024-03-29 05:57] LABS: #Basophils 0.04 10x3/uL (0.0-0.2); %Basophils 0.6 % (0.0-1.0); %Eosinophils 4.9 % (0.0-10.0); %Lymphocytes 15.4 % (21.0-51.0); %Monocytes 11.9 % (0.0-10.0); %Neutrophils 66.2 % (42.0-75.0); Hemoglobin 10.1 g/dL (14.0-18.0); Mean Corpuscular HGB CONC 30.6 g/dL (32.0-36.0); Mean Corpuscular Hemoglobin 26.9 pg (27.0-31.0); Mean Corpuscular Volume 87.8 fL (78.0-98.0); Mean Platelet Volume 10.4 fL (7.4-10.4); Platelet Count 261 10x3/uL (130-400); RBC Distribution Width 13.8 % (11.5-14.5); Red Blood Cell (RBC) Count 3.76 mill/uL (4.70-6.10)
[2024-03-29 06:12] LABS: Anion Gap 12 mmol/L (10-20); BUN (Urea Nitrogen) 16 mg/dL (8.4-25.7); Calc. Creatinine Clearance 98 mL/min (70-130); Carbon Dioxide 25 mmol/L (22-29); Chloride 100 mmol/L (98-107); Estimated GFR 101; Glucose 385 mg/dL (70-105); Potassium 4.4 mmol/L (3.5-5.1); Sodium 133 mmol/L (136-145)
[2024-03-29] MEDS: glipiZIDE XL 10 mg ER.TAB PO SCH (09:35)
[2024-03-29 15:26] VITALS: BMI 21.6
[2024-03-30] MEDS: HYDROcodone/Acetaminophen 7.5/325 mg Tablet PO PRN (18:11)
[2024-03-31 05:47] LABS: #Basophils 0.06 10x3/uL (0.0-0.2); %Monocytes 15.1 % (0.0-10.0); Hematocrit 30.2 % (42.0-52.0); Hemoglobin 9.4 g/dL (14.0-18.0); Mean Corpuscular HGB CONC 31.1 g/dL (32.0-36.0); Mean Corpuscular Hemoglobin 27.3 pg (27.0-31.0); Mean Corpuscular Volume 87.8 fL (78.0-98.0); Mean Platelet Volume 9.9 fL (7.4-10.4); Platelet Count 223 10x3/uL (130-400); RBC Distribution Width 13.7 % (11.5-14.5); Red Blood Cell (RBC) Count 3.44 mill/uL (4.70-6.10)
[2024-03-31 06:22] LABS: Anion Gap 13 mmol/L (10-20); BUN (Urea Nitrogen) 15 mg/dL (8.4-25.7); Calc. Creatinine Clearance 107 mL/min (70-130); Calcium 8.8 mg/dL (7.8-10.44); Carbon Dioxide 26 mmol/L (23-31); Chloride 103 mmol/L (98-107); Estimated GFR 104; Glucose 218 mg/dL (80-115); Potassium 4.1 mmol/L (3.5-5.1); Sodium 138 mmol/L (136-145)
[2024-03-31 06:23] LABS: CRP,High Sensitivity (Inhouse) 1.99 mg/dL (< or = 0.5)
[2024-04-01] MEDS: Famotidine 20 MG TAB PO SCH (19:46)
[2024-04-03 05:59] LABS: Hemoglobin 10.9 g/dL (14.0-18.0); Mean Corpuscular HGB CONC 31.1 g/dL (32.0-36.0); Mean Corpuscular Hemoglobin 26.7 pg (27.0-31.0); Mean Corpuscular Volume 85.8 fL (78.0-98.0); Mean Platelet Volume 10.1 fL (7.4-10.4); Platelet Count 264 10x3/uL (130-400); RBC Distribution Width 13.4 % (11.5-14.5); Red Blood Cell (RBC) Count 4.08 mill/uL (4.70-6.10)
[2024-04-03] MEDS ORDERED: Bupivacaine PF 0.5% 30 ML VIAL ONE (06:34)
[2024-04-03] MEDS ORDERED: Bacitracin Zinc Ointment 30 gm TUBE ONE ×2 (06:34→08:55)
[2024-04-03] MEDS ORDERED: Mineral Oil Sterile 10 ML VIAL ONE ×3 (06:34→08:12)
[2024-04-03] MEDS ORDERED: Thrombin 5000 UNITS/5 ML VIAL ONE ×3 (06:34→08:19)
[2024-04-03] MEDS ORDERED: PROPOFOL 40 ML ONE (06:39)
[2024-04-03] MEDS ORDERED: Fentanyl 250 MCG/5 ML VIAL ONE (06:39)
[2024-04-03] MEDS ORDERED: Glycopyrrolate 0.2 MG/ML 5 ML SYRINGE ONE (07:28)
[2024-04-03] MEDS ORDERED: PHENYLEPHRINE-NS 100 MCG/ML 10 ML SYRINGE ONE (07:28)
[2024-04-03] MEDS ORDERED: Ondansetron PF 4 MG/2 ML Vial ONE (09:36)
[2024-04-03] MEDS ORDERED: Ondansetron HCl/PF 4 MG/2 ML Vial IVP PRN (10:00)
[2024-04-03] MEDS ORDERED: Promethazine HCl 25 MG/ML VIAL IM PRN (10:00)
[2024-04-03] MEDS ORDERED: fentaNYL PF 100 MCG/2 ML SYRINGE ONE (10:33)
[2024-04-03] MEDS: Acetaminophen 325 MG TAB PO PRN (15:38)
[2024-04-04] MEDS: Rivaroxaban 2.5 MG TAB PO SCH (08:27)
[2024-04-04 08:50] LABS: #Basophils 0.03 10x3/uL (0.0-0.2); %Basophils 0.4 % (0.0-1.0); %Eosinophils 1.3 % (0.0-10.0); %Lymphocytes 14.4 % (21.0-51.0); %Monocytes 11.8 % (0.0-10.0); %Neutrophils 71.8 % (42.0-75.0); Hematocrit 34.4 % (42.0-52.0); Hemoglobin 10.8 g/dL (14.0-18.0); Mean Corpuscular HGB CONC 31.4 g/dL (32.0-36.0); Mean Platelet Volume 10.2 fL (7.4-10.4); Platelet Count 281 10x3/uL (130-400); RBC Distribution Width 13.6 % (11.5-14.5)
[2024-04-04 09:01] LABS: Anion Gap 13 mmol/L (10-20); BUN (Urea Nitrogen) 16 mg/dL (8.4-25.7); Calc. Creatinine Clearance 112 mL/min (70-130); Calcium 9.7 mg/dL (7.8-10.44); Carbon Dioxide 28 mmol/L (23-31); Chloride 102 mmol/L (98-107); Estimated GFR 105; Glucose 134 mg/dL (80-115); Potassium 4.2 mmol/L (3.5-5.1); Sodium 139 mmol/L (136-145)
[2024-04-04] MEDS: Bisacodyl 5 MG TAB PO SCH (09:38)
[2024-04-04] MEDS: Acetaminophen 500 MG TAB PO SCH ×2 (13:58→17:23)
[2024-04-04] MEDS: oxyCODONE 5 MG TAB PO PRN (13:59)
[2024-04-04] MEDS: traMADol HCl 50 MG TAB PO PRN (17:23)
[2024-04-05 06:09] LABS: #Basophils 0.05 10x3/uL (0.0-0.2); %Basophils 0.9 % (0.0-1.0); %Eosinophils 2.6 % (0.0-10.0); %Lymphocytes 20.5 % (21.0-51.0); %Monocytes 13.1 % (0.0-10.0); %Neutrophils 62.2 % (42.0-75.0); Hematocrit 30.2 % (42.0-52.0); Hemoglobin 9.3 g/dL (14.0-18.0); Mean Corpuscular HGB CONC 30.8 g/dL (32.0-36.0); Mean Corpuscular Volume 87.5 fL (78.0-98.0); Mean Platelet Volume 10.1 fL (7.4-10.4); Platelet Count 239 10x3/uL (130-400); RBC Distribution Width 13.6 % (11.5-14.5); Red Blood Cell (RBC) Count 3.45 mill/uL (4.70-6.10)
[2024-04-05 06:22] LABS: Anion Gap 10 mmol/L (10-20); BUN (Urea Nitrogen) 13 mg/dL (8.4-25.7); Calc. Creatinine Clearance 113 mL/min (70-130); Carbon Dioxide 27 mmol/L (23-31); Chloride 102 mmol/L (98-107); Estimated GFR 106; Glucose 200 mg/dL (80-115); Potassium 4.2 mmol/L (3.5-5.1); Sodium 135 mmol/L (136-145)
[2024-04-05] MEDS: Bisacodyl 5 MG TAB PO PRN (08:35)
[2024-04-05] MEDS: Rivaroxaban 15 MG TAB PO SCH (19:47)
[2024-04-06 05:20] LABS: #Basophils 0.04 10x3/uL (0.0-0.2); %Basophils 0.6 % (0.0-1.0); %Eosinophils 2.2 % (0.0-10.0); %Lymphocytes 17.6 % (21.0-51.0); %Monocytes 13.5 % (0.0-10.0); %Neutrophils 65.5 % (42.0-75.0); Hematocrit 29.9 % (42.0-52.0); Hemoglobin 9.5 g/dL (14.0-18.0); Mean Corpuscular HGB CONC 31.8 g/dL (32.0-36.0); Mean Corpuscular Hemoglobin 26.8 pg (27.0-31.0); Mean Corpuscular Volume 84.5 fL (78.0-98.0); Mean Platelet Volume 10.1 fL (7.4-10.4); Platelet Count 247 10x3/uL (130-400); RBC Distribution Width 13.5 % (11.5-14.5); Red Blood Cell (RBC) Count 3.54 mill/uL (4.70-6.10)
[2024-04-06 05:50] LABS: Anion Gap 12 mmol/L (10-20); BUN (Urea Nitrogen) 17 mg/dL (8.4-25.7); Calc. Creatinine Clearance 99 mL/min (70-130); Calcium 8.9 mg/dL (7.8-10.44); Carbon Dioxide 24 mmol/L (23-31); Chloride 99 mmol/L (98-107); Estimated GFR 101; Glucose 284 mg/dL (80-115); Potassium 4.3 mmol/L (3.5-5.1); Sodium 131 mmol/L (136-145)
[2024-04-06 09:07] VITALS: BP 124/60
[2024-04-06 09:15] VITALS: TEMP 98
== END 2024-04-06 12:04 | DRG 463 ==
LOC: ERS 07:09 → IMCU/EMU 12:10 → T4-A 03-22 17:32
PROVIDERS: ADMIT Hospitalist; ATTEND Internal Medicine
PROC: 02HV33Z Insertion of Infusion Device into Superior Vena Cava, Percutaneous Approach (ICD-10-PCS; 2024-03-26)
PROC: B518ZZA Fluoroscopy of Superior Vena Cava, Guidance (ICD-10-PCS; 2024-03-26)
PROC: B548ZZA Ultrasonography of Superior Vena Cava, Guidance (ICD-10-PCS; 2024-03-26)
PROC: 0HRDX74 Replacement of Right Lower Arm Skin with Autologous Tissue Substitute, Partial Thickness, External Approach (ICD-10-PCS; principal; 2024-04-03)
PROC: 0HBKXZZ Excision of Right Lower Leg Skin, External Approach (ICD-10-PCS; 2024-04-03)
DX: M72.6 Necrotizing fasciitis (principal); A48.0 Gas gangrene; I74.2 Embolism and thrombosis of arteries of the upper extremities; E11.52 Type 2 diabetes mellitus with diabetic peripheral angiopathy with gangrene; M60.000 Infective myositis, unspecified right arm; I10 Essential (primary) hypertension; F17.210 Nicotine dependence, cigarettes, uncomplicated; B96.7 Clostridium perfringens [C. perfringens] as the cause of diseases classified elsewhere; F12.10 Cannabis abuse, uncomplicated; F14.10 Cocaine abuse, uncomplicated; F11.10 Opioid abuse, uncomplicated; F31.9 Bipolar disorder, unspecified; Z71.6 Tobacco abuse counseling; Z71.51 Drug abuse counseling and surveillance of drug abuser
CPT/HCPCS: 36415; 36416; 36573; 76999; 80048; 80053; 80306; 81001; 83605; 83735; 84145; 85025; 85027; 85610; 85730; 86141; 87040; 93005; 96365; 96366; 96375; 96376; 97139; A6258; C1751; J0665; J1644; J1815; J2272; J2405; J2540; J2704; J3010; J3475; J3490; Q9967

== ENCOUNTER 2025-04-07 13:38 | Inpatient (IN) | payer OTHER ==
[2025-04-07] MEDS ORDERED: Cefepime 2 GM VIAL ONE (14:26)
[2025-04-07 14:57] LABS: #Basophils 0.07 10x3/uL (0.0-0.2); #Eosinophils 0.16 10x3/uL (0.0-0.7); #Monocytes 0.80 10x3/uL (0.11-0.59); #Neutrophils 6.47 10x3/uL (1.40-6.50); %Basophils 0.8 % (0.0-1.0); %Eosinophils 1.8 % (0.0-10.0); %Lymphocytes 15.4 % (21.0-51.0); %Monocytes 9.0 % (0.0-10.0); %Neutrophils 72.9 % (42.0-75.0); Hematocrit 44.2 % (42.0-52.0); Hemoglobin 14.6 g/dL (14.0-18.0); Mean Corpuscular Hemoglobin 28.4 pg (27.0-31.0); Mean Corpuscular Volume 86.0 fL (78.0-98.0); Platelet Count 280 10x3/uL (130-400); Red Blood Cell (RBC) Count 5.14 mill/uL (4.70-6.10); White Blood Cell (WBC) Count 8.88 10x3/uL (4.8-10.8)
[2025-04-07 15:15] LABS: INR-International Normal Ratio 1.0; PTT 31.7 sec (22.9-36.1); Prothrombin Time 13.7 sec (12.0-14.7)
[2025-04-07 15:17] LABS: ALT (SGPT) 13 U/L (Less than 45); AST (SGOT) 13 U/L (11-34); Albumin 3.7 g/dL (3.1-4.5); Alkaline Phosphatase 129 U/L (40-110); Anion Gap 14 mmol/L (10-20); BUN (Urea Nitrogen) 11 mg/dL (8.4-25.7); Bilirubin, Total 0.5 mg/dL (0.3-1.2); Calc. Creatinine Clearance 0 mL/min (70-130); Calcium 9.1 mg/dL (7.8-10.44); Carbon Dioxide 27 mmol/L (23-31); Chloride 101 mmol/L (98-107); Globulin 3.1 g/dL (2.4-3.5); Glucose 183 mg/dL (80-115); Potassium 4.3 mmol/L (3.5-5.1); Sodium 138 mmol/L (136-145)
[2025-04-07] MEDS ORDERED: metroNIDAZOLE 500 MG (100 mL) BAG ONE (15:44)
[2025-04-07] MEDS ORDERED: Glucagon 1 MG/ML KIT IM PRN (19:17)
[2025-04-07] MEDS ORDERED: Dextrose 50% Abboject 50 ML SYRINGE SLOW IVP PRN (19:17)
[2025-04-07 21:13] VITALS: BMI 23.0
[2025-04-07] MEDS: VANCOMYCIN 1.75 GM/350 ML Premix BAG IVPB SCH (22:48)
[2025-04-08] MEDS: Acetaminophen 325 MG TAB PO PRN (00:16)
[2025-04-08 04:53] LABS: #Basophils 0.07 10x3/uL (0.0-0.2); #Eosinophils 0.32 10x3/uL (0.0-0.7); #Monocytes 0.79 10x3/uL (0.11-0.59); #Neutrophils 4.45 10x3/uL (1.40-6.50); %Basophils 1.0 % (0.0-1.0); %Eosinophils 4.6 % (0.0-10.0); %Lymphocytes 18.3 % (21.0-51.0); %Monocytes 11.4 % (0.0-10.0); %Neutrophils 64.3 % (42.0-75.0); Hematocrit 35.8 % (42.0-52.0); Hemoglobin 12.0 g/dL (14.0-18.0); Mean Corpuscular Hemoglobin 28.4 pg (27.0-31.0); Mean Corpuscular Volume 84.6 fL (78.0-98.0); Platelet Count 234 10x3/uL (130-400); Red Blood Cell (RBC) Count 4.23 mill/uL (4.70-6.10); White Blood Cell (WBC) Count 6.93 10x3/uL (4.8-10.8)
[2025-04-08] MEDS: Vancomycin 1.25 GM / NS 250 ML VIAL-2-BAG IVPB SCH (05:04)
[2025-04-08 05:17] LABS: Vancomycin, Random 6.7 ug/mL (See Comment)
[2025-04-08 05:20] LABS: ALT (SGPT) 16 U/L (Less than 45); AST (SGOT) 20 U/L (11-34); Albumin 2.8 g/dL (3.1-4.5); Alkaline Phosphatase 100 U/L (40-110); Anion Gap 13 mmol/L (10-20); BUN (Urea Nitrogen) 10 mg/dL (8.4-25.7); Bilirubin, Total 0.1 mg/dL (0.3-1.2); Calc. Creatinine Clearance 135 mL/min (70-130); Calcium 8.5 mg/dL (7.8-10.44); Carbon Dioxide 22 mmol/L (23-31); Chloride 105 mmol/L (98-107); Globulin 2.9 g/dL (2.4-3.5); Glucose 236 mg/dL (80-115); Potassium 3.6 mmol/L (3.5-5.1); Sodium 136 mmol/L (136-145)
[2025-04-08] MEDS ORDERED: Vancomycin 1.25 GM / NS 250 ML VIAL-2-BAG IVPB SCH (06:00)
[2025-04-08] MEDS ORDERED: VANCOMYCIN IVPB SCH ×2 (08:00→09:00)
[2025-04-08] MEDS ORDERED: Lidocaine 1% PF 5 ML VIAL ONE (08:57)
[2025-04-08] MEDS ORDERED: Ondansetron PF 4 MG/2 ML Vial ONE (10:03)
[2025-04-08] MEDS: Enoxaparin 40 MG (0.4 mL) SYRINGE SC SCH (12:58)
[2025-04-08 13:03] VITALS: BP 146/76; TEMP 97.9
[2025-04-08] MEDS ORDERED: Vancomycin 1 GM in Premix 1 BAG IVPB SCH (16:00)
[2025-04-09] MEDS ORDERED: Enoxaparin 40 MG (0.4 mL) SYRINGE SC SCH (09:00)
[2025-04-10] MEDS ORDERED: FLU (Fluarix Triv) 25-26 (6MOS UP)/PF 45 MCG/0.5 ML Syringe IM ONE (09:00)
[2025-04-10] MEDS ORDERED: PNEUMOC 20-VAL CONJ-DIP CRM/PF 0.5 ML SYRINGE IM ONE (09:00)
== END 2025-04-08 13:23 | disposition home health service (06) | DRG 514 ==
LOC: ERS 13:38 → SURG A 19:17
PROVIDERS: ADMIT Family Medicine; ATTEND Family Medicine
PROC: 0LB70ZZ Excision of Right Hand Tendon, Open Approach (ICD-10-PCS; principal; 2025-04-08)
PROC: 3E03329 Introduction of Other Anti-infective into Peripheral Vein, Percutaneous Approach (ICD-10-PCS; 2025-04-08)
DX: M65.141 Other infective (teno)synovitis, right hand (principal); I10 Essential (primary) hypertension; E11.9 Type 2 diabetes mellitus without complications; F31.9 Bipolar disorder, unspecified; F10.90 Alcohol use, unspecified, uncomplicated; Z98.890 Other specified postprocedural states; Z90.49 Acquired absence of other specified parts of digestive tract; Z90.79 Acquired absence of other genital organ(s); Z82.49 Family history of ischemic heart disease and other diseases of the circulatory system; Z83.3 Family history of diabetes mellitus; Z87.891 Personal history of nicotine dependence; Z86.718 Personal history of other venous thrombosis and embolism
CPT/HCPCS: 36415; 80053; 80202; 83036; 83605; 85025; 85610; 85730; 87040; 87070; 87077; 87205; 93005; 96365; 96366; 96367; 96375; J0692; J1100; J1815; J2272; J2405; J3010; J3373; J3375; J7050